=== PATIENT | male | born 1960 | race Caucasian/White ===

== ENCOUNTER 2023-12-31 18:00 | Emergency (ER) | payer MEDICARE, OTHER, SELFPAY ==
[2023-12-31 18:09] VITALS: BP 134/76
[2023-12-31 18:42] LABS: % Basophils 0.7 % (0-2); % Eosinophils 1.4 % (0-6); % Immature Granulocytes 0.4 % (0-0.5); % Lymphocytes 27.3 % (20.5-51.1); % Monocytes 5.6 % (1.7-9.3); % Neutrophils 64.6 % (42.2-75.2); Absolute Eosinophils 0.1 10^3/uL (0-0.7); Absolute Lymphocytes 1.6 10^3/uL (1.2-3.4); Absolute Monocytes 0.3 10^3/uL (0.1-0.6); Absolute Neutrophils 3.7 10^3/uL (1.4-6.5); Hematocrit 36.5 % (39.0-52.0); Hemoglobin 11.6 g/dL (13.0-18.0); Mean Corp Hgb Conc. 31.8 g/dL (33.0-37.0); Mean Corpuscular Hgb 27.2 pg (27.0-31.0); Mean Corpuscular Volume 85.7 fL (80.0-94.0); Mean Platelet Volume 10.2 fL (7.4-10.4); Nucleated Red Blood Cells % 0 % (-); Platelet Count 255 10^3/uL (130-400); Red Blood Cell Count 4.26 10^6/uL (4.70-6.10); Red Cell Dist. Width 13.4 % (11.5-14.5); White Blood Cell Count 5.7 10^3/uL (4.8-10.8)
[2023-12-31 18:58] LABS: ALT (SGPT) < 10 U/L (0-50); AST (SGOT) 21 U/L (17-59); Alkaline Phosphatase 72 U/L (38-126); Blood Urea Nitrogen 8 mg/dl (9-20); Calcium 9.2 mg/dl (8.4-10.2); Carbon Dioxide 26 mmol/L (22-30); Chloride 104 mmol/L (98-107); Glucose 99 mg/dl (70-99); Potassium 3.7 mmol/L (3.5-5.1); Sodium 136 mmol/L (135-145); Total Bilirubin 0.3 mg/dl (0.2-1.3); Total Protein 6.9 g/dl (6.3-8.2); eGFR > 60.00
--- NOTE | 2023-12-31 22:00 | ED.GENMED ---
History of Present Illness
<ALBERTO Barrios - Last Filed: 01/01/24 03:46>
General
Chief Complaint: Swallowing Problem
Time Seen by Provider: 12/31/23 20:50
Travel History
Have you had any contact with someone who has COVID-19?: No
Do you have any symptoms of coronavirus? Fever > 100 degrees, chills, cough, shortness of breath, sore throat, loss of taste or smell, muscle aches, or headache?: No
History of Present Illness
History of Present Illness:
This is a 63 yo male PMH parkinson's, HTN, HLD, GERD presenting with his sister for dysphagia x 3 weeks. He states he struggles eating solids and must cut his food into small chunks. He denies dysphagia to soft foods and liquids. He denies
odynophagia, regurgitation, foul breath. He states his GERD has been well controlled with pepcid. He also complains of chronic blurred vison which was slightly improved when getting new glasses a few months ago. He states the dizziness is worse in
the last 2 weeks, but he admits he has not been drinking enough water and is not sleeping much due to anxiety. He notes his ankles have been swollen for 2 weeks now, he suspects due to inactivity following a rotator cuff surgery 5 weeks ago.
His history is significant for Parkinsons, diagnosed in 2007, for which he takes carbidopa/levadopa. He typical symptoms are L arm shaking, gait instability and rigidity, and occasional visual hallucinations.
Pst surgical history significant for rotator cuff surgery 5 weeks ago, C6-7 fusion ~13 years ago.
Family hx significant for bladder CA, throat CA, rectal CA. and leukemia.
Past History
<ALBERTO Barrios - Last Filed: 01/01/24 03:46>
Past History
ED Past Medical History: GERD, HTN, Hypercholesterolemia and Other (parkinsons)
ED Past Surgical History: Cholecystectomy and Orthopedic
Social History
Tobacco: Non-smoker
Alcohol: Occasional
Drug: None
Personal:
Living: with family
Family History
Family History: Cancer
Review of Systems
<ALBERTO Barrios - Last Filed: 01/01/24 03:46>
Review of Systems
Allergies reviewed?: Yes
EENT: Reports no symptoms
Respiratory: Reports no symptoms
Cardiac: Reports no symptoms
ABD/GI: Reports other (dysphagia x 3 wks)
Hematologic/Lymphatic: Reports no symptoms
Psychiatric: Reports hallucinations (occasional visual hallucinations consistent with his parkinson's history)
Phy Exam
<ALBERTO Barrios - Last Filed: 01/01/24 03:46>
General Physical Exam
General Presentation: well appearing
General age: appears stated age
General Mental: alert
General Hydration: appears well hydrated
ENT Exam
ENT Exam: neck supple, normocephalic and lymphnodes (nontender)
Eye Exam
Eye Exam: PERRL
Cardiovascular Exam
Cardiovascular Exam: regular rate/rhythm
Pulmonary Exam
Pulmonary Exam: lungs clear
Gastrointestinal Exam
Gastrointestinal Exam: non tender and soft
Neurological Exam
Neurological Exam: alert, oriented x3, speech normal and other (L hand tremor consistent with his baseline)
Psychiatric Exam
Psychiatric Exam: normal mood/affect
Course
<ALBERTO Barrios - Last Filed: 01/01/24 03:46>
Orders/Labs/Results
Orders:
Orders
12/31/23 18:22
BNP [NT-proBNP] Urgent
Complete Blood Count/With Diff Urgent
Comprehensive Metabolic Panel Urgent
12/31/23 23:03
Clonazepam [Klonopin] 1 mg PO NOW STA
Abnormal Lab Results
12/31/23
18:22
RBC 4.26 L 10^6/uL
(4.70-6.10)
Hgb 11.6 L g/dL
(13.0-18.0)
Hct 36.5 L %
(39.0-52.0)
MCHC 31.8 L g/dL
(33.0-37.0)
BUN 8 L mg/dl
(9-20)
12/31/23 18:22
12/31/23 18:22
Vital Signs
Initial and Last Documented VS:
Initial Vital Signs
Temp Pulse Resp BP Pulse Ox
97.9 F 76 16 134/76 99
12/31/23 18:09 12/31/23 18:09 12/31/23 18:09 12/31/23 18:09 12/31/23 18:09
Last Documented Vital Signs
Temp Pulse Resp BP Pulse Ox
97.9 F 82 5 141/85 99
12/31/23 18:09 12/31/23 23:21 12/31/23 23:21 12/31/23 23:21 12/31/23 22:20
<Mary Quijano DO - Last Filed: 01/01/24 07:26>
Orders/Labs/Results
Orders:
Orders
12/31/23 18:22
BNP [NT-proBNP] Urgent
Complete Blood Count/With Diff Urgent
Comprehensive Metabolic Panel Urgent
12/31/23 23:03
Clonazepam [Klonopin] 1 mg PO NOW STA
Abnormal Lab Results
12/31/23
18:22
RBC 4.26 L 10^6/uL
(4.70-6.10)
Hgb 11.6 L g/dL
(13.0-18.0)
Hct 36.5 L %
(39.0-52.0)
MCHC 31.8 L g/dL
(33.0-37.0)
BUN 8 L mg/dl
(9-20)
12/31/23 18:22
12/31/23 18:22
Vital Signs
Initial and Last Documented VS:
Initial Vital Signs
Temp Pulse Resp BP Pulse Ox
97.9 F 76 16 134/76 99
12/31/23 18:09 12/31/23 18:09 12/31/23 18:09 12/31/23 18:09 12/31/23 18:09
Last Documented Vital Signs
Temp Pulse Resp BP Pulse Ox
97.9 F 82 5 141/85 99
12/31/23 18:09 12/31/23 23:21 12/31/23 23:21 12/31/23 23:21 12/31/23 22:20
<ALBERTO Barrios - Last Filed: 01/01/24 03:46>
MDM/Problems Addressed
Differential Diagnosis Includes:
Difficulty swallowing may be caused by Parkinson's progression, GERD, achalasia
-dysphagia to solids only, with no odynophagia and regurgitation
-GERD well controlled with pepcid, denies epigastric pain and chest pain
-no history of throat cancer(nonsmoker, insignificant alcohol history)
Blurry vision
- Was seen in JUN 2023 for blurry vision, received new glasses prescription which helped
-notes he ran out of clonazepam 3 days ago. Blurry vision has worsened in this time frame
-given a dose of clonazepam and tonight, instructed to F/U with PCP for refill
<ALBERTO Barrios - Last Filed: 01/01/24 03:46>
*Critical Care Note
Total Time (30-74mins, 75-104mins- exclusive of procedures): Not Applicable
<Mary Quijano DO - Last Filed: 01/01/24 07:26>
*Pulse Oximetry
Patient hypoxic: no
*Associate [employer] Interpretation
Rate: normal
Interpretation: normal
Rhythm: sinus
ED Attending Note
<ALBERTO Barrios - Last Filed: 01/01/24 03:46>
-
Portions of this chart may have been created with voice recognition software.� Occasional wrong word or��sound alike� substitutions may have occurred due to the inherent limitations of voice recognition software.
<Mary Quijano DO - Last Filed: 01/01/24 07:26>
ED Attending Note
Patient seen and examined by attending physician: Yes
I performed the substantive portion of visit, reviewed & personally made and approve the management plan that is documented in note by myself or JODI.: Yes
I performed a history and physical exam of patient and discussed management with resident, I reviewed resident's note and agree with documented findings and plan of care.: Yes
ED Attending Note:
This is a 63-year-old gentleman who has history of moderate Parkinson's disease, hypertension, hyperlipidemia, GERD, anxiety, BPH.
He underwent uneventful rotator cuff repair 5 weeks ago, but other than this he admits to neglecting routine follow-up over the past year with multiple specialist including primary care physician, neurologist, ENT specialist.
He complains of 3-week history of difficulty swallowing which he describes as a sense of solids getting stuck in the back of his throat but denies pain, no choking nor coughing. He is able to swallow solids but feels a sense of food getting
momentarily stuck or difficulty swallowing. He has had no vomiting, no regurgitation, no coughing or shortness of breath. He does admit to mild nasal congestion but has not had a cough, no shortness of breath, no fever, no chest pain or
palpitations.
He admits to mild bilateral lower leg edema primarily noted around his ankles which is most noted towards the end of the day. No leg pain. No dyspnea on exertion. No nocturnal dyspnea.
He has had no change in weight.
He is chronically maintained on clonazepam 1 mg nightly, prescribed by his PCP and admits to inadvertently running out of this 3 days ago. Since then he has had marked difficulty sleeping and admits to moderate fatigue during the day feeling that
he 'is in a fog' He denies dizziness nor lightheadedness, no palpitations.
He did call his PCP last week to request a refill and initially there was a delay in return phone call from PCP until today when he was recommended to schedule an appointment which he has done so from January 18 and was told that a small prescription
has been called to his pharmacy to cover him until his next follow-up appointment January 18.
He has been maintained on this dose of clonazepam for many years and has never run out in the past.
GENERAL: 63-year-old gentleman appears somewhat older than stated age. Awake and alert, pleasant, easily communicative and appears in no acute distress. Sister is accompanying.
EYE: pupils equal and reactive. anicteric
NECK: Supple, nontender, no meningismus, no significant adenopathy. No JVD.
ENT: posterior pharynx has moderate pearly sick postnasal drip. There is no injection nor edema, oral mucosa is moist. TM clear b/l, nares have mildly boggy pale blue turbinates. There is a small scab right nasal bridge. Patient states he picked
out a lesion a few days ago. He denies chronicity to the scab.
CARDIAC: Regular rate and rhythm. no murmur.
LUNGS: Clear breath sounds bilaterally, no acute respiratory distress, no wheezes/rales/rhonchi
ABDOMEN: Soft, nondistended, without focal tenderness, no r/g, no cvat. normoactive BS.
NEUROLOGICAL: Alert and oriented x3, no focal neuro deficits. Mild intermittent resting tremor of hands. Mild/moderate bradykinesia.
SKIN: Warm and dry, normal color, skin intact. Small scab right nasal bridge. Similar small scab posterior mid parietal scalp.
MUSCULOSKELETAL: No clubbing or cyanosis, trace pretibial edema bilateral lower extremities, peripheral pulses are full and equal b/l. No palpable tenderness. Negative Homans.
PSYCH: Mildly blunted affect. Easily communicative.
Patient presents with globus sensation more pronounced with swallowing but nothing in history to suggest marked difficulty swallowing and reassuring that he has had no episodes of choking nor cough nor regurgitation.
Exam remarkable for moderate postnasal drip which I suspect is a major contributing factor. Other consideration is GERD versus exacerbation of Parkinson's with dysphagia.
Clinically appears euvolemic and he has been drinking fluids well. His fluid of choice is caffeine free diet soda.
He denies NSAID use and reports taking Tylenol for pain which has been effective for postop rotator cuff pain.
He is noted to have very minimal edema bilateral lower extremities but lungs are clear and history is again reassuring without complaints of dyspnea on exertion, no shortness of breath, no cough, no chest pain.
Labs are unremarkable, mild but stable anemia. Normal white blood cell count. Unremarkable chemistries and BNP is normal at 32.
It is concerning that patient inadvertently ran out of clonazepam 3 days ago. As he has been chronically maintained on benzodiazepine, abrupt discontinuation is quite dangerous, concern for potential breakthrough seizure.
I suspect this abrupt discontinuation of clonazepam is cause for his acute insomnia over the past 3 days and along with insomnia, poor sleep this is adding to his daytime fatigue and sense of brain fog. He has had no falls, no focal weakness,
nothing to suggest CVA.
I have offered a small prescription of clonazepam which patient reassures me is not required stating his PCP has called in a short prescription to cover him until follow-up appointment scheduled for January 18.
Thus will give a dose of clonazepam tonight.
As far as globus sensation I suspect is allergic rhinitis in nature will add a course of daily antihistamine/Zyrtec along with Flonase nasal spray. Recommend he continue his Astelin nasal spray.
He is noted to have a small scabbed lesion right nasal bridge as well as similarly scabbed lesion parietal scalp which may be acute focal trauma in nature but recommend follow-up with manager salt for skin cancer check.
Prompt follow-up with PCP for recheck.
Discharge Plan
Departure
Patient Disposition: Home (Routine Discharge)
Date of Disposition: 12/31/23
Time of Disposition: 23:15
Patient with high blood pressure during this ER visit?: No
Condition: Good
Discharge Problem:
allergic rhinitis with PND, Globus sensation, abrupt discontinuation of clonazepam, acute insomnia r/t clonazepam d/c
Instructions: Seasonal Allergies (DC), Dysphagia (DC), Insomnia (DC), Clonazepam, Tips for Getting Better Sleep
Prescriptions:
New
fluticasone propionate 50 mcg/actuation spray,suspension
2 spray intranasal DAILY Qty: 16 0RF
cetirizine [Zyrtec] 10 mg tablet
10 mg PO DAILY Qty: 30 1RF
No Action
simvastatin 40 MG tablet
40 mg PO HS
amlodipine-benazepril 1 CAPSULE capsule
1 cap PO HS
esomeprazole magnesium [Nexium] 40 MG capsule,delayed release(DR/EC)
40 mg PO DAILY
zolpidem 10 MG tablet
10 mg PO HS PRN (Reason: insomnia)
multivitamin [Daily Multiple] 1 EACH tablet
1 ea PO DAILY
Referrals:
Karen Carranza MD [Family Provider] - Keep scheduled appt
Activity Restrictions/Additional Instructions:
Continue all of your regular medications including Astelin nasal spray (azelastine) which should be twice daily.
I am adding a daily Zyrtec 10 mg tablet as well as once daily Flonase nasal spray to assist with seasonal allergies and significant postnasal drip noted on exam which I suspect may be contributing to your sense of difficulty swallowing.
Stay well-hydrated on a daily basis.
Resume nightly clonazepam as prescribed by your primary care physician and follow-up with your PCP as scheduled January 18.
Interventions
Interventions:
*Risk Screen - Suicide Last Done: 12/31/23 18:07
*General Assessment Last Done: 12/31/23 18:07
*Neglect/Abuse Screening Last Done: 12/31/23 18:07
ED- Fall Risk Assessment Last Done: 12/31/23 22:20
*ED COVID-19 Vaccine History Last Done: 12/31/23 22:20
*Nursing Disposition Last Done: 12/31/23 23:40
ED-EENT Assessment Last Done: 12/31/23 22:20
NN-Scvnxq-Xgqqaxikyc Assessment Last Done: 12/31/23 22:20
ED- Pulmonary Assessment Last Done: 12/31/23 22:20
ED- Neurological Assessment Last Done: 12/31/23 22:20
ED Swallowing Screen Last Done: 12/31/23 23:21
Discharge Date and Time
Discharge Date/Time: 12/31/23 23:40
Print Language: PORTUGUESE
[2023-12-31 22:39] VITALS: BP 141/71
[2023-12-31 23:00] VITALS: BP 138/85
[2023-12-31 23:21] VITALS: BP 141/85
[2023-12-31] MEDS: KLONOPIN 1 MG PO (23:22)
== END 2023-12-31 23:40 | disposition home or self-care (01) ==
LOC: EMR 18:00
PROVIDERS: Emergency Medicine; EMERGENCY PHYSICIAN Emergency Medicine; FAMILY PHYSICIAN Family Medicine
DX: J30.9 Allergic rhinitis, unspecified (principal); R09.A2 Foreign body sensation, throat; R42 Dizziness and giddiness; R13.10 Dysphagia, unspecified; G47.00 Insomnia, unspecified; R09.82 Postnasal drip; R53.83 Other fatigue; R60.0 Localized edema; L98.8 Other specified disorders of the skin and subcutaneous tissue; D64.9 Anemia, unspecified; K21.9 Gastro-esophageal reflux disease without esophagitis; I10 Essential (primary) hypertension; G20.A1 Parkinson's disease without dyskinesia, without mention of fluctuations; F41.9 Anxiety disorder, unspecified; E78.00 Pure hypercholesterolemia, unspecified; E78.5 Hyperlipidemia, unspecified; N40.0 Benign prostatic hyperplasia without lower urinary tract symptoms; Z98.890 Other specified postprocedural states; Z88.1 Allergy status to other antibiotic agents; Z88.5 Allergy status to narcotic agent
CPT/HCPCS: 99283; 80053; 83880; 85025

== ENCOUNTER 2025-05-24 21:51 | Emergency (ER) | payer MEDICARE, OTHER, SELFPAY ==
[2025-05-24 21:53] VITALS: BP 144/85
[2025-05-24 21:55] VITALS: BP 141/78
[2025-05-24 22:00] VITALS: BP 144/85
[2025-05-24 22:05] VITALS: BMI 29.2
[2025-05-24] MEDS: PROTONIX IV 40 MG IV (22:26)
[2025-05-24] MEDS: MAALOX 50 PO (22:26)
[2025-05-24 22:32] LABS: Hematocrit 38.6 % (39.0-52.0); Hemoglobin 12.6 g/dL (13.0-18.0); Mean Corp Hgb Conc. 32.6 g/dL (33.0-37.0); Mean Corpuscular Volume 86.2 fL (80.0-94.0); Nucleated Red Blood Cells % 0 % (-); Platelet Count 168 10^3/uL (130-400); Red Cell Dist. Width 14.1 % (11.5-14.5)
--- NOTE | 2025-05-24 22:41 | ED.GENMED ---
History of Present Illness
<ALBERTO Sparrow - Last Filed: 05/25/25 00:28>
General
Chief Complaint: Chest Pain
Source: patient
Exam Limitations: none
Time Seen by Provider: 05/24/25 22:33
Nursing documentation reviewed up to this point in time: agreed with
History of Present Illness
History of Present Illness:
Patient is a 65 year old male with PMH of Parkinson's, HTN, HLD, and GERD who presents to the ED via EMS with a complaint of chest pain that began around 2030 tonight. Patient describes the pain as sharp, epigastric pain that radiates under his
diaphram with nausea, no vomiting. He denies shortness of breath, cough, fever, chills, diaphoresis. He also reports his face feeling 'sunburnt and red' after the chest pain began. He reports similar episodes in the past that happened while sleeping
and symptoms improve with Tums.
Past History
<ALBERTO Sparrow - Last Filed: 05/25/25 00:28>
Past History
ED Past Medical History: GERD, HTN, Hypercholesterolemia and Other (parkinsons)
ED Past Surgical History: Cholecystectomy and Orthopedic
Patient has exhibited threatening behavior?: No
Social History
Tobacco: Non-smoker
Alcohol: Occasional
Drug: None
Personal:
Living: with family
Family History
Family History: Cancer
Review of Systems
<ALBERTO Sparrow - Last Filed: 05/25/25 00:28>
Review of Systems
Allergies reviewed?: Yes
Constitutional: Reports no symptoms
EENT: Reports no symptoms
Respiratory: Reports no symptoms
ABD/GI: Reports nausea
: Reports no symptoms
Neurological: Reports no symptoms
Phy Exam
<ALBERTO Sparrow - Last Filed: 05/25/25 00:28>
General Physical Exam
General Presentation: no apparent distress
General Habitus: normal
Neurological Exam
Neurological Exam: alert
Motor
Tremors: parkinsonian
Skin Exam
Skin Exam: warm/dry
Psychiatric Exam
Psychiatric Exam: normal mood/affect
Scores
<ALBERTO Sparrow - Last Filed: 05/25/25 00:28>
Heart Score for Chest Pain Patients
STEMI patient?: No
History: Slightly or Non-Suspicious
ECG: Normal
Age: >45 - <65 years
Risk Factors: 1 or 2 Risk Factors
Troponin: </= Normal Limit
Heart Score for Chest Pain Patients: 2
Heart Score Risk: 2.5% MACE over next 6 weeks
<Mary Quijano DO - Last Filed: 05/25/25 01:13>
Heart Score for Chest Pain Patients
Heart Score for Chest Pain Patients: 2
Heart Score Risk: 2.5% MACE over next 6 weeks
Course
<ALBERTO Sparrow - Last Filed: 05/25/25 00:28>
Orders/Labs/Results
Orders:
Orders
05/24/25 21:52
EKG [Electrocardiogram (*1)] Urgent
Reason for Study: Chest Pain
EKG- Treatment ONCE
05/24/25 22:17
Mag Hydrox/Al Hydrox/Simeth [Maalox] 30 ml Phenobarb/Hyoscy/Atropine/Scop [] 10 ml Viscous Lidocaine 2% [Xylocaine Viscous Cup] 10 ml PO NOW
Pantoprazole [Protonix IV] 40 mg IV NOW STA
05/24/25 22:20
Complete Blood Count/With Diff Urgent
Comprehensive Metabolic Panel Urgent
Lipase Urgent
Comment: ADD ON
Troponin I Urgent
05/24/25 22:21
Add On- LAB Urgent
Tests Added?: lipase
05/24/25 22:24
Mag Hydrox/Al Hydrox/Simeth [Maalox] 30 ml .ROUTE .STK-MED ONE
Phenobarb/Hyoscy/Atropine/Scop [] 10 ml .ROUTE .STK-MED ONE
Viscous Lidocaine 2% [Xylocaine Viscous Cup] 15 ml .ROUTE .STK-MED ONE
05/24/25 23:02
EKG- Treatment ONCE
05/24/25 23:30
Electrocardiogram (*1) Urgent
Reason for Study: Chest Pain
05/24/25 23:35
Troponin I Urgent
Sucralfate Suspension [Carafate Suspension] 1 gm PO NOW STA
05/24/25 23:36
Ankle, Right 3 view CR [CR Ankle - Right Min 3 Views *] Urgent
Comment:
Reason For Exam: R ankle pain x few months-worsening
CR Chest - 2 Views Urgent
Comment:
Reason For Exam: acute CP
Abnormal Lab Results
05/24/25
22:20
RBC 4.48 L 10^6/uL
(4.70-6.10)
Hgb 12.6 L g/dL
(13.0-18.0)
Hct 38.6 L %
(39.0-52.0)
MCHC 32.6 L g/dL
(33.0-37.0)
Glucose 103 H mg/dl
(70-99)
05/24/25 22:20
05/24/25 22:20
Vital Signs
Initial and Last Documented VS:
Initial Vital Signs
Temp Pulse Resp BP Pulse Ox
98.1 F 81 20 144/85 97
05/24/25 21:53 05/24/25 21:53 05/24/25 21:53 05/24/25 21:53 05/24/25 21:53
Last Documented Vital Signs
Temp Pulse Resp BP Pulse Ox
98.1 F 72 14 154/87 97
05/24/25 21:53 05/25/25 00:45 05/25/25 00:45 05/25/25 00:33 05/24/25 22:51
<Mary Quijano, DO - Last Filed: 05/25/25 01:13>
Orders/Labs/Results
Orders:
Orders
05/24/25 21:52
EKG [Electrocardiogram (*1)] Urgent
Reason for Study: Chest Pain
EKG- Treatment ONCE
05/24/25 22:17
Mag Hydrox/Al Hydrox/Simeth [Maalox] 30 ml Phenobarb/Hyoscy/Atropine/Scop [] 10 ml Viscous Lidocaine 2% [Xylocaine Viscous Cup] 10 ml PO NOW
Pantoprazole [Protonix IV] 40 mg IV NOW STA
05/24/25 22:20
Complete Blood Count/With Diff Urgent
Comprehensive Metabolic Panel Urgent
Lipase Urgent
Comment: ADD ON
Troponin I Urgent
05/24/25 22:21
Add On- LAB Urgent
Tests Added?: lipase
05/24/25 22:24
Mag Hydrox/Al Hydrox/Simeth [Maalox] 30 ml .ROUTE .STK-MED ONE
Phenobarb/Hyoscy/Atropine/Scop [] 10 ml .ROUTE .STK-MED ONE
Viscous Lidocaine 2% [Xylocaine Viscous Cup] 15 ml .ROUTE .STK-MED ONE
05/24/25 23:02
EKG- Treatment ONCE
05/24/25 23:30
Electrocardiogram (*1) Urgent
Reason for Study: Chest Pain
05/24/25 23:35
Troponin I Urgent
Sucralfate Suspension [Carafate Suspension] 1 gm PO NOW STA
05/24/25 23:36
Ankle, Right 3 view CR [CR Ankle - Right Min 3 Views *] Urgent
Comment:
Reason For Exam: R ankle pain x few months-worsening
CR Chest - 2 Views Urgent
Comment:
Reason For Exam: acute CP
Abnormal Lab Results
05/24/25
22:20
RBC 4.48 L 10^6/uL
(4.70-6.10)
Hgb 12.6 L g/dL
(13.0-18.0)
Hct 38.6 L %
(39.0-52.0)
MCHC 32.6 L g/dL
(33.0-37.0)
Glucose 103 H mg/dl
(70-99)
05/24/25 22:20
05/24/25 22:20
Vital Signs
Initial and Last Documented VS:
Initial Vital Signs
Temp Pulse Resp BP Pulse Ox
98.1 F 81 20 144/85 97
05/24/25 21:53 05/24/25 21:53 05/24/25 21:53 05/24/25 21:53 05/24/25 21:53
Last Documented Vital Signs
Temp Pulse Resp BP Pulse Ox
98.1 F 72 14 154/87 97
05/24/25 21:53 05/25/25 00:45 05/25/25 00:45 05/25/25 00:33 05/24/25 22:51
<ALBERTO Sparrow - Last Filed: 05/25/25 00:28>
*Pulse Oximetry
SaO2: 97
Oxygen Mode of Delivery: Room air
<Mary Quijano DO - Last Filed: 05/25/25 01:13>
*Radiology
Radiology exam reviewed: preliminary read by ED provider (Chest x-ray shows mild cardiomegaly, clear lung osei. Overall similar and unchanged from previous 2022. Right ankle x-ray shows mild DJD otherwise unremarkable.)
*Pulse Oximetry
Patient hypoxic: no
*EKG
Interpreted by ED Provider?: Yes
Comparison EKG: no changes (Unchanged from previous 2022)
Rate: normal
Rhythm: sinus
[place]: normal axis
Interval: normal interval
QRS Pattern: normal QRS
Ischemia: no ischemia
*Highway Design Engineer Interpretation
Rate: normal
Interpretation: normal
Rhythm: sinus
*Critical Care Note
Total Time (30-74mins, 75-104mins- exclusive of procedures): Not Applicable
ED Attending Note
<ALBERTO Sparrow - Last Filed: 05/25/25 00:28>
-
Portions of this chart may have been created with voice recognition software.� Occasional wrong word or��sound alike� substitutions may have occurred due to the inherent limitations of voice recognition software.
<Mary Quijano DO - Last Filed: 05/25/25 01:13>
ED Attending Note
Patient seen and examined by attending physician: Yes
I performed the substantive portion of visit, reviewed & personally made and approve the management plan that is documented in note by myself or JODI.: Yes
ED Attending Note:
This is a 65-year-old gentleman with history of hypertension, hyperlipidemia, GERD, Parkinson's disease, neuropathy. History of CAD and reports remote history of cardiac catheterization showing a 65% blockage. Did not require intervention. No
prior history of PA. He follows with rope cleaner, Dr. Sánchez.
He presents with complaints of substernal chest pain, somewhat constant since 8:30 PM. Chest pain began while he was driving home from [employer]. Upon arrival home he called 911. He took a full-strength aspirin as per film projector operator instructions.
He was given 2 sublingual nitroglycerin by EMS without relief. He does admit to mild nausea but has had no vomiting. He admits that his 'stomach feels upset' He denies abdominal pain, no back pain, no weakness or numbness. No diaphoresis, no
shortness of breath. No palpitations.
He has somewhat chronic paresthesia of feet and hands, diagnosed with neuropathy. He also notes some right ankle pain that began a few months ago, no insightful injury. He uses a walker when out of the house. Does not require assistive devices
while in the house. No recent falls but has fallen in the past.
GENERAL: 65-year-old gentleman appears somewhat older than stated age. Awake and alert, pleasant, appears in no acute distress. Moderate resting tremor of bilateral upper extremities.
EYE: pupils equal and reactive. anicteric
NECK: Supple, nontender, no meningismus, no significant adenopathy.
ENT: oral mucosa is moist. No rhinorrhea.
CARDIAC: Regular rate and rhythm. no murmur.
LUNGS: Clear breath sounds bilaterally, no acute respiratory distress, no wheezes/rales/rhonchi
ABDOMEN: Soft, nondistended, very minimal epigastric tenderness with deep palpation only, no r/g, no cvat. normoactive BS.
NEUROLOGICAL: Alert and oriented x3, moderate resting tremor of bilateral upper extremities left greater than right. Moderate global sensory loss bilateral feet right greater than left.
SKIN: Warm and dry, normal color, skin intact. No rash.
MUSCULOSKELETAL: No C/C/E. peripheral pulses are full and equal b/l. Right ankle without soft tissue swelling nor erythema. No tenderness to palpation. Full range of motion without difficulty nor pain.
PSYCH: Normal and appropriate interaction.
Concern for ACS, GERD, musculoskeletal pain, pancreatitis. Common bile duct stone is also a consideration. Patient has prior history of cholecystectomy. Dissection, PE are also considered but much less likely.
EKG is reassuring, no acute ST-T wave abnormalities and overall similar and unchanged from previous 2022. Prehospital EKG is also similar.
Labs are pending including troponin. Will add lipase.
As patient has had no relief with nitroglycerin will trial a GI cocktail and Protonix for potential GERD as cause for chest discomfort.
Will consider imaging depending on results and clinical course.
01:00
Patient reports moderate, temporary relief of chest pain after GI cocktail, Carafate, IV Protonix.
Currently admits that chest pain is markedly improved, near resolved.
EKG remains unchanged.
Troponin is negative x 2.
Chest x-ray is unremarkable, unchanged from previous.
Right ankle x-ray shows mild DJD otherwise unremarkable.
I suspect chest pain is GERD in nature. Patient had been maintained on omeprazole 20 mg twice daily but this was decreased to once daily perhaps a month or 2 ago. Recommend titrating omeprazole back to 20 mg twice daily.
He has history of lumbar DJD, previous lumbar surgeries and known history of lower extremity neuropathy. He has chronic numbness to his right foot with right ankle pain that has been persistent over the past few months without insightful injury.
Ankle pain is not worse with ambulation. No tenderness to palpation and full ankle range of motion without pain. I highly suspect ankle pain is neuropathic pain in nature. He does follow with neurologist, Dr. Mills and has undergone EMG/nerve
conduction studies in the past, a few years ago. Recommend follow-up with his neurologist for further evaluation. He may need updated EMG.
Encouraged follow-up with his rope cleaner, Dr. Raygoza as well as follow-up with PCP.
Return precautions discussed.
Discharge Plan
Departure
Patient Disposition: Home (Routine Discharge)
Date of Disposition: 05/25/25
Time of Disposition: 01:02
Patient with high blood pressure during this ER visit?: No
Condition: Good
Discharge Problem:
Nonspecific chest pain, Exacerbation of GERD, Neuropathic pain of right lower extremity
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
Prescriptions:
New
omeprazole 20 mg capsule,delayed release(DR/EC)
20 mg PO BID Qty: 60 1RF
No Action
multivitamin [Daily Multiple] 1 EACH tablet
1 ea PO DAILY
sertraline 100 mg Tablet
100 mg PO
amlodipine 5 mg Tablet
5 mg PO DAILY
simvastatin 20 mg Tablet
20 mg PO HS
sertraline 50 mg Tablet
50 mg PO
melatonin 10 mg Tablet
20 mg PO HS
polyethylene glycol 3350 [Miralax] 17 gram Powder In Packet
17 g PO DAILY
donepezil 10 mg Tablet
10 mg PO DAILY
clonazepam 1 mg Tablet
1 mg PO DAILY
terbinafine HCl 250 mg Tablet
250 mg PO DAILY
carbidopa-levodopa 25-100 mg Tablet
PO
magnesium
150 mg PO DAILY
aspirin 81 mg Tablet
81 mg PO DAILY
omeprazole 20 mg Tablet,Delayed Release (Dr/Ec)
20 mg PO DAILY
Referrals:
Danis Mills MD [Active, Neurology] - Call in 1-3 days for appt
UNKNOWN - PT DOES,NOT KNOW [Family Provider]
Activity Restrictions/Additional Instructions:
Increase your omeprazole 20 mg to twice daily dosing.
Follow-up with Dr. Mills regarding right ankle/foot pain, numbness that I suspect is neuropathy related.
Follow-up with your rope cleaner, Dr. Raygoza for further evaluation of chest pain as well.
Interventions
Interventions:
*Risk Screen - Suicide Last Done: 05/24/25 22:05
*General Assessment Last Done: 05/24/25 21:53
*Neglect/Abuse Screening Last Done: 05/24/25 21:53
*ED- Fall Risk Assessment Last Done: 05/24/25 22:05
*ED COVID-19 Vaccine History Last Done: 05/24/25 22:05
ED- Cardiac Assessment Last Done: 05/24/25 22:34
Discharge Date and Time
Print Language: [place]
[2025-05-24 22:55] LABS: ALT (SGPT) < 10 U/L (0-50); AST (SGOT) 21 U/L (17-59); Albumin 4.3 g/dl (3.5-5.0); Alkaline Phosphatase 65 U/L (38-126); Blood Urea Nitrogen 12 mg/dl (9-20); Calcium 9.3 mg/dl (8.4-10.2); Carbon Dioxide 27 mmol/L (22-30); Chloride 106 mmol/L (98-107); Estimated Creatinine Clearance 96 ml/min; Glucose 103 mg/dl (70-99); Lipase 115 U/L (23-300); Potassium 4.0 mmol/L (3.5-5.1); Sodium 139 mmol/L (135-145); Total Protein 7.0 g/dl (6.3-8.2); eGFR > 60.00
[2025-05-24 22:56] LABS: Troponin I < 0.012 ng/ml
[2025-05-24 23:00] VITALS: BP 138/76
[2025-05-24] MEDS: CARAFATE SUSPENSION 1 GM PO (23:40)
[2025-05-25 00:11] LABS: Troponin I < 0.012 ng/ml
[2025-05-25 00:33] VITALS: BP 154/87
[2025-05-25 01:00] VITALS: BP 158/92
== END 2025-05-25 01:15 | disposition home or self-care (01) ==
LOC: EMR 21:51
PROVIDERS: Emergency Medicine; EMERGENCY PHYSICIAN Emergency Medicine
DX: R07.89 Other chest pain (principal); R10.13 Epigastric pain; M25.571 Pain in right ankle and joints of right foot; R11.0 Nausea; M79.604 Pain in right leg; K21.9 Gastro-esophageal reflux disease without esophagitis; M19.071 Primary osteoarthritis, right ankle and foot; G20.A1 Parkinson's disease without dyskinesia, without mention of fluctuations; E78.00 Pure hypercholesterolemia, unspecified; I25.10 Atherosclerotic heart disease of native coronary artery without angina pectoris; I11.9 Hypertensive heart disease without heart failure; M47.26 Other spondylosis with radiculopathy, lumbar region; Z79.899 Other long term (current) drug therapy; Z90.49 Acquired absence of other specified parts of digestive tract; Z88.1 Allergy status to other antibiotic agents; Z88.5 Allergy status to narcotic agent; Z88.8 Allergy status to other drugs, medicaments and biological substances
CPT/HCPCS: 99285; 96374; 71046; 73610; 80053; 83690; 84484; 85025; 93005